=== PATIENT | male | born 1950 | race Caucasian/White ===

== ENCOUNTER 2022-09-21 07:15 | Outpatient (REF) | payer BC, SELFPAY ==
--- NOTE | ~2022-09-21 | CT_ITS ---
CT SINUS WITHOUT CONTRAST CLINICAL INFORMATION: Sinonasal polyps. Deviated septum. COMPARISON: None available. TECHNIQUE: A multidetector CT acquisition of the sinuses is obtained without contrast. This CT examination was performed using dose optimization techniques as appropriate, variously including the following: *Automated exposure control *Adjustment of mA and/or kV according to patient size (this includes techniques or standardized protocols for targeted exams where dose is matched to indication/reason for exam; i.e. extremities or head) *Use of iterative reconstruction technique FINDINGS: There is mild to moderate polypoid mucosal thickening within the right maxillary sinus and there is mild polypoid mucosal thickening within the left maxillary sinus. There is mild mucosal thickening within the sphenoid sinuses bilaterally. Moderate mucosal thickening within the ethmoid air cells bilaterally and there is a completely opacified right posterior ethmoid air cell. Mild mucosal thickening within the inferior frontal sinuses bilaterally. The major sinus drainage pathways remain patent. There is rightward deviation of the nasal septum. The left fovea ethmoidalis is 2 mm deeper than the right side. The bony orbits are intact. The internal carotid arteries remain will cover with bone. The bony orbits are intact. Mastoid air cells and middle ear cavities are clear. TMJs are unremarkable. There is periapical lucency surrounding the root of the right maxillary central incisor. No significant soft tissue findings. Elongated styloid processes bilaterally that can be correlated for clinical signs of [place] syndrome. CT/CT sinus wo IV con IMPRESSION: - Mild to moderate sinus mucosal disease that is in part polypoid within the right greater than left maxillary sinus. The major sinus drainage pathways remain patent. - There is significant rightward deviation of the nasal septum. - There is periapical lucency surrounding the root of the right maxillary central incisor. - Elongated styloid processes bilaterally that can be correlated for clinical signs of [place] syndrome.
== END 2022-09-21 07:16 | disposition home or self-care (01) ==
LOC: HO.CT 07:15
PROVIDERS: Visit Provider Otolaryngology
DX: J33.0 Polyp of nasal cavity (principal); J34.2 Deviated nasal septum
CPT/HCPCS: 70486

== ENCOUNTER 2023-01-14 00:02 | Emergency (ER) | payer BC, SELFPAY ==
[2023-01-14 00:18] VITALS: BP 170/80; PULSE 87; RESP 16; TEMP 36.6; O2SAT 98; BMI 30.9
[2023-01-14 01:00] VITALS: BP 162/89; PULSE 74; PULSE 76; RESP 18; RESP 20; TEMP 36.9; O2SAT 95
--- NOTE | 2023-01-14 01:07 | ED.FALL ---
HPI - Fall General Chief Complaint: Fall Stated Complaint: fall, head strike Time Seen by Provider: 01/14/23 01:06 Source: patient Mode of arrival: ambulatory Limitations: no limitations History of Present Illness HPI Narrative: Patient with chronic episode cough, had a bout of cough was trying to go to get the water tripped and fell hitting his left eyebrow to the ground patient was on the couch and try to get up when he fell no loss of consciousness minor injury patient been seen by PCP and ENT specialist a chronic cough etiology likely allergic Related Data Previous Rx's Medication Instructions Recorded cefdinir 300 mg capsule 300 mg PO BID #14 caps 01/14/23 codeine 10 mg-guaifenesin 100 mg/5 10 ml PO Q6H PRN cough #237 mL 01/14/23 mL oral liquid prednisone 20 mg tablet 40 mg PO DAILY #10 tabs 01/14/23 Allergies Allergy/AdvReac Type Severity Reaction Status Date / Time clarithromycin [From BIAXIN] Allergy Unknown HIVES Verified 01/14/23 00:22 doxycycline [DOXYCYCLINE] Allergy Unknown ANGIOEDEMA Verified 01/14/23 00:22 Penicillins [PCN] Allergy Unknown HEADACHE Verified 01/14/23 00:22 Sulfa (Sulfonamide Allergy Unknown HIVES Verified 01/14/23 00:22 Antibiotics) [SULFA (SULFONAMIDE ANTIBIOTICS)] Review of Systems Review of Systems: Yes all other systems are reviewed and are negative Physical Exam Vital Signs: Vital Signs: Last Vital Signs Temp 98.4 F 01/14/23 01:00 Pulse 76 01/14/23 01:00 Resp 20 01/14/23 01:00 BP 162/89 H 01/14/23 01:00 Pulse Ox 95 01/14/23 01:00 O2 Del Method Room Air 01/14/23 01:00 BMI result Body Mass Index 30.9 Appearance: Alert. Oriented X3. No acute distress. Eyes: PERRLA, superficial laceration 2 cm left eyebrow ENT: Pharynx normal. Oral Mucosa moist Neck: Normal inspection. Neck supple. No midline tenderness CVS: Normal heart rate and rhythm. Pulses normal. Respiratory: No respiratory distress. Equal air entry bilateral, prolonged expiration Abdomen: Soft and nontender. Skin: Skin warm and dry. Normal skin color. Normal skin turgor. Neuro: Oriented X 3. No motor deficit. No sensory deficit.No cerebellar signs , cranial nerves II-XII intact HEENT: Face images: 1. Superficial laceration 2 cm left eyebrow Medications Administered Discontinued Medications Generic Name Dose Route Start Last Admin Trade Name Hal PRN Reason Stop Dose Admin Cefuroxime Axetil 500 mg 01/14/23 01:14 01/14/23 01:19 Cefuroxime Axetil 500 Mg Tablet PO 01/14/23 01:15 500 mg ONCE ONE Administration Dexamethasone 10 mg 01/14/23 01:14 01/14/23 01:19 Dexamethasone 2 Mg Tablet PO 01/14/23 01:15 10 mg ONCE ONE Administration Guaifenesin/Codeine Phosphate 10 ml 01/14/23 01:14 01/14/23 01:19 Guaifen/Codeine Sf 200/20/10ml 10 Ml Liquid PO 01/14/23 01:15 10 ml ONCE ONE Administration Procedures Laceration Laceration 1: Site: face (Left eyebrow) Side (If applicable): left Size (cm): 2 Description: linear Depth: simple, single layer Local Anesthetic: lidocaine 1% Amount of anesthesia used (mL): 1 Skin layer closed with: nylon Size (cm): 5-0 Number of sutures: 5 Technique: simple, interrupted Medical Decision Making Medical Decision Making MDM Narrative: Patient with minor fall no loss of consciousness , laceration left eyebrow which was sutured patient ambulatory will discharge home Discharge Plan Discharge Clinical Impression: Laceration of face, Allergic bronchitis Patient Disposition: Home, Self-Care Instructions: Laceration (ED), Acute Bronchitis (ED) Additional Instructions: Local care as advised Suture removal in 7 days Prescriptions: New cefdinir 300 mg capsule 300 mg PO BID Qty: 14 0RF prednisone 20 mg tablet 40 mg PO DAILY Qty: 10 0RF codeine-guaifenesin 10-100 mg/5 mL liquid 10 ml PO Q6H PRN (Reason: cough) Qty: 237 0RF Interventions: ED Discharge Assessment Last Done: 01/14/23 01:55
[2023-01-14] MEDS: guaiFEN/Codeine SF 200/20/10ML 10 ML LIQUID PO (01:19)
[2023-01-14] MEDS: dexAMETHasone 2 MG TABLET 10 MG PO (01:19)
== END 2023-01-14 02:06 | disposition home or self-care (01) ==
LOC: HO.ED 02:03
PROVIDERS: Emergency Provider Internal Medicine
DX: J45.909 Unspecified asthma, uncomplicated (principal); S01.112A Laceration without foreign body of left eyelid and periocular area, initial encounter; W01.198A Fall on same level from slipping, tripping and stumbling with subsequent striking against other object, initial encounter; R05.3 Chronic cough; Y93.89 Activity, other specified; Y92.019 Unspecified place in single-family (private) house as the place of occurrence of the external cause; Y99.9 Unspecified external cause status
CPT/HCPCS: 12011; 99283; 99284; J8540

== ENCOUNTER 2025-01-11 08:40 | Outpatient (REF) | payer BC, SELFPAY ==
--- NOTE | ~2025-01-11 | XR_ITS ---
EXAMINATION: XR SHOULDER 2 OR MORE VIEWS RIGHT HISTORY: M25.519 - Pain in unspecified shoulder COMPARISON: There are no prior studies available for comparison. FINDINGS: Three views of the right shoulder are submitted. Osseous mineralization is normal. There is no fracture or dislocation. The glenohumeral joint is maintained. There is severe osteoarthritis of the AC joint with joint space narrowing and osteophyte formation. The soft tissues are unremarkable. XR/XR shoulder RT min 2V IMPRESSION: Severe degenerative change of the AC joint. Electronically signed by: Mayo Protillo MD 01/11/2025 09:14 AM EDT
== END 2025-01-11 08:41 | disposition home or self-care (01) ==
LOC: HO.HOSX 08:40
PROVIDERS: Visit Provider Orthopaedic Surgery
DX: M24.811 Other specific joint derangements of right shoulder, not elsewhere classified (principal); M25.511 Pain in right shoulder
CPT/HCPCS: 20610; 73030; J0665; J1100; J2003

== ENCOUNTER 2025-01-11 08:53 | Outpatient (AMB) | payer BC, SELFPAY ==
--- NOTE | 2025-01-11 08:56 | A.OFFVIS_ITS ---
Vital Signs 01/11/25 09:00 Height 5 ft 8 in Weight 188 lb BMI 28.6 Intake Visit Reasons: [employer] - Right Shoulder Pain Intake Note: Mayo is a 74 year old right hand dominant male who presents today as a new patient with complaints of right shoulder pain. Patient reports that he has had ongoing pain in the right shoulder for about 2 months now. He has pain in the shoulder, mostly with ROM. His pain radiates down the bicep and occasionally the tricep. His pain is worse at night and in the morning. He does not take anything for his pain and has had no previous therapies. Allergies clarithromycin [From BIAXIN] Allergy (Unknown, Verified 01/14/23 00:22) HIVES doxycycline [DOXYCYCLINE] Allergy (Unknown, Verified 01/14/23 00:22) ANGIOEDEMA Penicillins [PCN] Allergy (Unknown, Verified 01/14/23 00:22) HEADACHE Sulfa (Sulfonamide Antibiotics) [SULFA (SULFONAMIDE ANTIBIOTICS)] Allergy (Unknown, Verified 01/14/23 00:22) HIVES HPI HPI [employer] - Right Shoulder Pain: Details: The patient is a 74-year-old male presenting with right shoulder pain and weakness. Over the past two months, he has experienced dull pain originating at the front of the right shoulder and radiating towards the triceps and biceps, with no noted precipitating trauma or incident. The pain predominantly manifests in the morning upon waking and during certain arm movements, such as lifting and reaching, particularly over the shoulder level. Despite this, he retains fun ctional motion and can perform daily tasks, although with some discomfort and fear of exacerbating the pain. A past medical history of left shoulder rotator cuff and bicep repair from 2019 was discussed, with a distinction made between the current right shoulder pain and the previous left shoulder condition. 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 [facility] Surgical History (Updated 01/11/25 @ 09:03 by Thea Ordoñez CMA) H/O repair of left rotator cuff Physical Exam Vital Signs: BMI result Body Mass Index 28.6 Extrem Other: Right shoulder with full range of motion. 4/5 empty can on the right 4+ out of 5 empty can on the left. Tenderness to palpation right AC joint with pain on but cross-body adduction on the right. Results Reviewed Results Reviewed: I personally reviewed relevant radiographs. Mild glenohumeral and moderate AC joint arthritis. Assessment & Plan Assessment & Plan (1) Internal derangement of right shoulder: Code(s): M24.811 - Other specific joint derangements of right shoulder, not elsewhere classified Category: Medical Plan: I discussed with the patient the likely diagnosis of arthritis contributing to his shoulder pain, as well as the possible historical impact of a childhood clavicle fracture. We agreed upon an injection to the right shoulder as an initial treatment step, with the understanding that it might provide partial relief. We also planned to obtain an MRI for a more comprehensive evaluation of his shoulder anatomy. I explained the potential benefits and risks of the injection, clarifying that it might not address every area of pain. Follow-up care was discussed, and the patient was instructed to stop at the javascript front end developer for scheduling. The plan included administering an injection into the right shoulder to alleviate pain, particularly nighttime discomfort. An MRI was ordered to investigate the shoulder's condition further. The patient was advised to perform shoulder exercises to enhance function and was briefed about the risks and advantages of the injection. Future treatment plans will be contingent on the results of the MRI. The patient consented to this management approach. - Consent to receive an injection in the right shoulder. - An MRI of the shoulder will be scheduled. - Perform prescribed shoulder exercises to improve function. - Stop by the javascript front end developer for follow-up scheduling. - Monitor shoulder symptoms and report any changes or concerns. Patient was informed and verbally consented to the use of an ambient scribe for clinic note documentation during this visit. Orders: Orders MR shoulder RT wo con Today M24.811 - Other specific joint derangements of right shoulder, not elsewhere classified XR shoulder RT min 2V Today M25.519 - Pain in unspecified shoulder Medications: Discontinued cefdinir Discontinued Reason: Patient no longer taking 300 mg PO BID 14 caps 0RF codeine-guaifenesin 10-100 mg/5 mL Discontinued Reason: Patient no longer taking 10 mL PO Q6H PRN 237 mL 0RF cough prednisone Discontinued Reason: Patient no longer taking 40 mg (2 x 20 mg) PO DAILY 10 tabs 0RF Coding Level of Care Code New Pt Level 3 (51089) Diagnoses Internal derangement of right shoulder M24.811
[2025-01-11 09:00] VITALS: BMI 28.6
== END 2025-01-11 10:07 | disposition home or self-care (01) ==
LOC: HO.HOS 08:54
PROVIDERS: Visit Provider Orthopaedic Surgery
DX: M24.811 Other specific joint derangements of right shoulder, not elsewhere classified (principal)
CPT/HCPCS: 20610; 99203

== ENCOUNTER → 2025-01-11 08:55 | Outpatient (BNV) | payer BC, SELFPAY | PROVIDERS: Visit Provider Radiology Diagnostic Radiology | DX: M25.511 Pain in right shoulder (principal) | CPT/HCPCS: 73030 ==

== ENCOUNTER 2025-03-22 06:00 | Outpatient (RCR) | payer BC, SELFPAY ==
--- NOTE | 2025-02-15 07:01 | MHC.PT.EP ---
[facility] [place] Office [place] Office [place] Office [address] [phone] F: [phone] F: [phone] F: [phone] F: [phone] Physical Therapy Plan of Care Date of Evaluation: 02/15/25 Date of Surgery: Diagnosis: internal derangement of right shoulder. Assessment: Patient is a 74 year old R handed male who presents with s/s consistent with internal derangement of right shoulder. He works with daily job demands including a little bit of everything. Patient past medical history includes L rotator cuff surgery and HTN. Current impairments include pain, posture, ROM, strength, activity tolerance and functional mobility. Functional limitations include decreased ability to sleep, reach, lift, carry, push and pull. Patient is motivated with good rehab potential. Skilled PT will address impairments and functional limitations in order to achieve goals. 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 Manual therapy to restore motion and function. Therapeutic exercise to improve strength and flexibility. Neuromuscular re-education for posture and balance. Therapeutic activities to return to functional activities of daily living. Electronically signed by: Luis Small, PT Please sign and return to therapist. Thank you for your referral.
--- NOTE | 2025-04-27 06:41 | MHC.PT.DC ---
[facility] [place] Office [place] Office [place] Office [address] [phone] F: [phone] F: [phone] F: [phone] F: [phone] Physical Therapy Discharge Report Diagnosis: internal derangement of right shoulder. Date of Surgery: Date of Evaluation: 02/15/25 Date of Discharge: Treatments to Date: 6 Cancellations to Date: No Shows to Date: Discharge Status: Independent with HEP Recommend MD Follow-up Discharge Summary: 03/22/25: pt has been still with soreness and pain that is unresolved. He has been able to perform all ex but with pain. we will hold at this time and refer back to MD. 03/07/25: discussed plan with patient and possible avenues for management. we will continue 1 more visit then likely d/c. pt is progressing slowly. i have been educating thoroughly on the purpose of each intervention and possible factors that could impact recovery timeline. 02/28/25: pt progressing with strength. still impaired by pain with ER and abduction. we will continue to progress into this range as tolerated. edu on posture and mechanics. 02/22; Pt modified range for exs to remain pain free with all exs. Pt liked MMM. 02/20; Pt GH ant positioned. No pain with exs. Patient is a 74 year old R handed male who presents with s/s consistent with internal derangement of right shoulder. He works with daily job demands including a little bit of everything. Patient past medical history includes L rotator cuff surgery and HTN. Current impairments include pain, posture, ROM, strength, activity tolerance and functional mobility. Functional limitations include decreased ability to sleep, reach, lift, carry, push and pull. Patient is motivated with good rehab potential. Skilled PT will address impairments and functional limitations in order to achieve goals. Electronically signed by: Luis Small, PT Please sign and return to therapist. Thank you for your referral.
== END 2025-04-27 06:41 | disposition home or self-care (01) ==
LOC: HO.PTCHIC 06:00
PROVIDERS: PCP Urology; Visit Provider Physician Assistant
DX: M24.811 Other specific joint derangements of right shoulder, not elsewhere classified (principal)
CPT/HCPCS: 97110; 97140; 97161

== ENCOUNTER 2025-04-05 12:46 | Outpatient (AMB) | payer BC, SELFPAY ==
--- NOTE | 2025-04-05 12:50 | MHC.OFFVIS ---
Vital Signs 04/05/25 12:51 Height 5 ft 8 in Weight 188 lb BMI 28.6 Intake Visit Reasons: OV: right shoulder pain Allergies clarithromycin (From BIAXIN) Allergy (Unknown, Verified 04/05/25 12:50) HIVES doxycycline (DOXYCYCLINE) Allergy (Unknown, Verified 04/05/25 12:50) ANGIOEDEMA Penicillins (PCN) Allergy (Unknown, Verified 04/05/25 12:50) HEADACHE Sulfa (Sulfonamide Antibiotics) (SULFA (SULFONAMIDE ANTIBIOTICS)) Allergy (Unknown, Verified 04/05/25 12:50) HIVES HPI HPI OV: right shoulder pain : Details: Mayo is a 74 year old right hand dominant male who presents today for a follow up of his right shoulder. On 01/11/25 an injection was administered to the right shoulder and an MRI was ordered but denied as he had not completed 6 weeks of conservative treatment. At this time patient has completed 6 weeks of formal physical therapy with no relief and would like to discuss re-ordering MRI. He continues to describe difficulty with overhead reaching. He is very active and works. he is cautious to avoid certain activities. [facility] Surgical History (Updated 01/11/25 @ 09:03 by Thea Ordoñez CMA) H/O repair of left rotator cuff Physical Exam Vital Signs: BMI result Body Mass Index 28.6 Extrem Other: Mark controlling for scapular rotation he is markedly weak on the right side with 4-/ 5 strength Assessment & Plan Assessment & Plan (1) Internal derangement of right shoulder: Code(s): M24.811 - Other specific joint derangements of right shoulder, not elsewhere classified Category: Medical Plan: This is a 74-year-old very active and healthy gentleman with what I suspect is rotator cuff arthropathy of the right shoulder. I recommend an MRI to assess. Orders: Orders MR shoulder RT wo con 04/05/25 M24.811 - Other specific joint derangements of right shoulder, not elsewhere classified Coding Level of Care Code Est Pt Level 3 (14661) Diagnoses Internal derangement of right shoulder M24.811
[2025-04-05 12:51] VITALS: BMI 28.6
== END 2025-04-05 13:41 | disposition home or self-care (01) ==
LOC: HO.HOS 12:46
PROVIDERS: PCP Urology; Visit Provider Orthopaedic Surgery
DX: M24.811 Other specific joint derangements of right shoulder, not elsewhere classified (principal)
CPT/HCPCS: 99213

== ENCOUNTER → 2025-04-05 12:46 | Outpatient (BNVA) | payer BC, SELFPAY | PROVIDERS: PCP Urology; Visit Provider Orthopaedic Surgery | DX: Z13.89 Encounter for screening for other disorder (principal) ==

== ENCOUNTER 2025-05-08 07:12 | Outpatient (REF) | payer BC, SELFPAY ==
--- NOTE | ~2025-05-08 | MR_ITS ---
EXAMINATION: MR SHOULDER WITHOUT CONTRAST, RIGHT CLINICAL INFORMATION: Other specified joint derangement of the right shoulder. COMPARISON: Correlated to x-ray dated January 11, 2025. TECHNIQUE: MRI of the shoulder without contrast was performed on a high-field scanner. FINDINGS: ROTATOR CUFF: Intrasubstance signal abnormality at the supraspinatus tendon with complete disruption near the junction at the greater tuberosity. There is fluid signal above and underneath surface of the supraspinatus tendon. There is a 2.7 mm gap between the supraspinatus tendon fibers. There is volume loss of the supraspinatus myotendon. BICEPS: There is fluid signal at the long head tendon of the biceps muscle. CORACOACROMIAL ARCH: The undersurface of the acromion is curved with small subacromial spur. There is 7 trace of fluid at the acromioclavicular joint. There is a superior concave deformity at the supraspinatus muscle-tendon. There is small to moderate amount fluid at the coracoid bursa.. LABRUM/CAPSULE: The anterior and posterior labrum are intact without signal abnormality. There is a small amount of fluid at the glenohumeral joint capsule. GLENOHUMERAL JOINT/MARROW: There is bone marrow STIR is signal abnormality at the greater tuberosity and at the humeral head greater tuberosity junction/supraspinatus tendon insertion. There is small amount of fluid in the glenohumeral joint. MR/MR shoulder RT wo con IMPRESSION: Complete fullness tear, supraspinatus resulting in 2.7 mm gap without full retraction. Small to moderate volume effusion/fluid, glenohumeral joint capsule. Concerning impingement syndrome on the supraspinatus myotendon. Coracoid bursitis should be considered. Electronically signed by: Ye Moncada MD 05/08/2025 08:08 AM EDT
== END 2025-05-08 07:13 | disposition home or self-care (01) ==
LOC: HO.MRI 07:12
PROVIDERS: PCP Internal Medicine; Visit Provider Orthopaedic Surgery
DX: M24.811 Other specific joint derangements of right shoulder, not elsewhere classified (principal); M75.121 Complete rotator cuff tear or rupture of right shoulder, not specified as traumatic; M25.411 Effusion, right shoulder; M75.41 Impingement syndrome of right shoulder
CPT/HCPCS: 73221

== ENCOUNTER → 2025-05-08 07:12 | Outpatient (BNV) | payer BC, SELFPAY | PROVIDERS: PCP Internal Medicine; Visit Provider Radiology Diagnostic Radiology | DX: M75.101 Unspecified rotator cuff tear or rupture of right shoulder, not specified as traumatic (principal) | CPT/HCPCS: 73221 ==

== ENCOUNTER 2025-05-21 10:57 | Outpatient (AMB) | payer BC, SELFPAY ==
--- NOTE | 2025-05-21 10:58 | MHC.OFFVIS ---
Vital Signs 05/21/25 10:59 Height 5 ft 8 in Weight 188 lb BMI 28.6 Intake Visit Reasons: OV-Rt shoulder MRI review Intake Note: Mayo is a 75 year old right hand dominant male who presents today for an MRI review of his Right Shoulder Allergies clarithromycin (From BIAXIN) Allergy (Unknown, Verified 04/05/25 12:50) HIVES doxycycline (DOXYCYCLINE) Allergy (Unknown, Verified 04/05/25 12:50) ANGIOEDEMA Penicillins (PCN) Allergy (Unknown, Verified 04/05/25 12:50) HEADACHE Sulfa (Sulfonamide Antibiotics) (SULFA (SULFONAMIDE ANTIBIOTICS)) Allergy (Unknown, Verified 04/05/25 12:50) HIVES HPI HPI OV-Rt shoulder MRI review: Details: Mayo is a 75 year old right hand dominant male who presents today for an MRI review of his Right Shoulder. He feels better than prior. [facility]PLACED BY [facility] Surgical History (Updated 01/11/25 @ 09:03 by Thea Ordoñez [facility]) H/O repair of left rotator cuff Physical Exam Vital Signs: BMI result Body Mass Index 28.6 Extrem Other: When controlling for scapular rotation he is less weak on right than prior but 4+/5 Results Reviewed Results Reviewed: I personally reviewed the MR images. IMPRESSION: Complete fullness tear, supraspinatus resulting in 2.7 mm gap without full retraction. Small to moderate volume effusion/fluid, glenohumeral joint capsule. Concerning impingement syndrome on the supraspinatus myotendon. Coracoid bursitis should be considered. Assessment & Plan Assessment & Plan (1) Rotator cuff tear, right: Code(s): M75.101 - Unspecified rotator cuff tear or rupture of right shoulder, not specified as traumatic Category: Medical Plan: Full thickness RTC tear with intact infraspinatus. This is a repairable tear and I recommend repair. He has gone through this with the left shoulder and understands the length of recovery. He works and is very active and doesn't know if he wants to fix it. I described the risks of both surgical and non surgical treatment. He will let me know how he would like to proceed. I recommend RTC repair. Coding Level of Care Code Est Pt Level 4 (17974) Diagnoses Rotator cuff tear, right M75.101
[2025-05-21 10:59] VITALS: BMI 28.6
--- OUTSIDE RECORDS SUMMARY | 2025-05-21 11:56 | XMS_ITS | Clinical Summary ---
Author Organization [facility] Address [address] [place] [phone] Phone Care Team Providers Care Supervisor Frame Sample And Pattern Name Role Phone Pcp, Unknown Primary Care Provider Unavailabl e Social History Tobacco Use Types Packs/Day Years Used Date Smoking Tobacco: Never Assessed Education Answer Date Recorded Are you interested in more education? Not on adrian e 02/12/2023 Are you concerned about learning? Not on file 02/12/2023 No 02/12/2023 No 02/12/2023 Digital Access Answer Date Recorded No 03/16/2023 No 03/16/2023 Reliable internet access at home? Not on file 03/16/2023 Device with a working camera? Not on file Sex and Gender Information Value Date Recorded Sex Assigned at Not on file Legal Sex Male 1:31 PM EST Gender Identity Not on file Sexual Orientation Not on file Plan of Treatment Not on file Medical Devices Not on file Insurance [employer] [place] MEDIC[place] PPO BLUE REPLACEMENT [facility] MEDICARE PPO BLUE REPLACEMENT [facility] MEDICARE PPO BLUE REPLACEMENT [facility] MEDICARE PPO BLUE REPLACEMENT [facility] MEDICARE PPO BLUE [place]AC[place] [address] [address] [place] [address] MEDICARE PPO BLUE [place] [place] [address] MEDICARE PPO BLUE [place] [place] [address] MEDICARE PPO BLUE REPLACEMENT [employer] [place] BLUE REPLACEMENT Care Teams Supervisor Frame Sample And Pattern Relationship Specialty Start Date End Date Pcp, Unknown PCP - General 11/27/20 Additional Source Comments The information contained in this document represents components of the legal health record. It is not the complete legal health record.[facility]
== END 2025-05-21 11:55 | disposition home or self-care (01) ==
LOC: HO.HOS 10:57
PROVIDERS: PCP Internal Medicine; Visit Provider Orthopaedic Surgery
DX: M75.101 Unspecified rotator cuff tear or rupture of right shoulder, not specified as traumatic (principal)
CPT/HCPCS: 99214